=== PATIENT | female | born 1940 | race Caucasian/White ===

== ENCOUNTER 2016-07-23 22:01 | Observation (INO) | payer MEDICARE, OTHER ==
[~2016-07-23] VITALS: Ht 167.6 cm; Wt 55.5 kg
[~2016-07-23 22:01] MED LIST: ASPIRIN325 MG PO; DICLO TOP; LIPITOR40 MG PO; OXYCODONE HCL15 MG PO; PROAIR HFA8.5 GM INH; SPIRIVA18 MCG INH; VITAMIN D250000 UNIT PO; VOLTAREN TOP; ZANAFLEX4 MG PO
== END 2016-07-25 16:56 | disposition home or self-care (01) ==
LOC: ER 22:01 → MED 07-24 02:50
PROVIDERS: ADMIT Internal Medicine
DX: R09.02 Hypoxemia (principal); J44.1 Chronic obstructive pulmonary disease with (acute) exacerbation; G89.4 Chronic pain syndrome; E78.5 Hyperlipidemia, unspecified; I10 Essential (primary) hypertension; E55.9 Vitamin D deficiency, unspecified; M19.90 Unspecified osteoarthritis, unspecified site; F17.210 Nicotine dependence, cigarettes, uncomplicated; Z88.5 Allergy status to narcotic agent; Z88.8 Allergy status to other drugs, medicaments and biological substances; Z91.038 Other insect allergy status; Z79.1 Long term (current) use of non-steroidal anti-inflammatories (NSAID); Z79.2 Long term (current) use of antibiotics; Z79.82 Long term (current) use of aspirin; Z79.899 Other long term (current) drug therapy; Z98.890 Other specified postprocedural states
CPT/HCPCS: 36415; 96365; 96372; 96375; 96376; G0378; J1650